=== PATIENT | female | born 1975 | race Asian ===

== ENCOUNTER 2023-09-08 12:44 | Outpatient (RCR) | payer OTHER, SELFPAY | END 2023-09-08 23:59 | disposition home or self-care (01) | LOC: RPT 12:44 | PROVIDERS: ATTENDING PHYSICIAN Physician Assistant | DX: R42 Dizziness and giddiness (principal); Z73.6 Limitation of activities due to disability | CPT/HCPCS: 97112; 97163 ==

== ENCOUNTER → 2023-10-29 07:52 | Outpatient (REF) | payer OTHER, SELFPAY | LOC: WDC 07:52 | PROVIDERS: ATTENDING PHYSICIAN Physician Assistant | DX: Z12.31 Encounter for screening mammogram for malignant neoplasm of breast (principal) | CPT/HCPCS: 77063; 77067 ==

== ENCOUNTER → 2023-12-18 08:21 | Outpatient (REF) | payer OTHER, SELFPAY | LOC: PAVMRI 08:21 | PROVIDERS: ATTENDING PHYSICIAN Otolaryngology | DX: R42 Dizziness and giddiness (principal) | CPT/HCPCS: 70553; A9575 ==

== ENCOUNTER → 2024-11-03 16:38 | Outpatient (REF) | payer OTHER, SELFPAY | LOC: WDC 16:38 | PROVIDERS: ATTENDING PHYSICIAN Obstetrics & Gynecology Gynecology; FAMILY PHYSICIAN Physician Assistant | DX: Z12.31 Encounter for screening mammogram for malignant neoplasm of breast (principal); Z01.419 Encounter for gynecological examination (general) (routine) without abnormal findings | CPT/HCPCS: 77063; 77067 ==

== ENCOUNTER → 2025-03-25 14:47 | Outpatient (REF) | payer OTHER, SELFPAY | LOC: WDC 14:47 | PROVIDERS: ATTENDING PHYSICIAN Obstetrics & Gynecology Gynecology; FAMILY PHYSICIAN Physician Assistant | DX: R92.30 Dense breasts, unspecified (principal) | CPT/HCPCS: 76641 ==